=== PATIENT | female | born 1990 | race Caucasian/White ===

== ENCOUNTER → 2017-03-27 | Outpatient (CLI) | payer SELFPAY ==
[~2017-03-27] MED LIST: LUTERA PO; MINOCYCLINE100 MG PO
== END | disposition home or self-care (01) ==
LOC: LAB 18:30
DX: Z33.1 Pregnant state, incidental (principal)

== ENCOUNTER → 2017-04-04 | Outpatient (CLI) | payer SELFPAY | END | disposition home or self-care (01) | LOC: US 15:00 → LAB 15:11 | DX: Z32.01 Encounter for pregnancy test, result positive (principal) ==